=== PATIENT | female | born 1960 | race Caucasian/White ===

== ENCOUNTER → 2020-02-18 09:12 | Outpatient (CLI) | payer OTHER, SELFPAY ==
--- NOTE | 2020-02-18 09:21 | DI.MRI.S_ITS ---
PROCEDURE: MR THORACIC SPINE WO/W CON INDICATIONS: Hypercalcemia,Malignant neoplasm of unspecified si TECHNIQUE: Noncontrast sagittal T1 spin echo and T2 fast spin echo, sagittal STIR, axial T1 and T2 fast spin echo through the thoracic spine. After the administration of contrast, axial and sagittal T1 spin echo with fat saturation through the thoracic spine. COMPARISON: [facility], , MR LUMBAR SPINE WO/W CON, 02/18/2020, 15:57. [facility], [place], [place] BONE SCAN WHOLE BODY, 02/18/2020, 13:22. FINDINGS: Image quality: Excellent. Alignment and curvature: This examination is limited by involuntary motion artifact. Marrow: Extensive bony metastatic disease can be seen within the thoracic spine. At the L5 level, there is a pathologic fracture seen with a central compression deformity of 30%. There is no significant posterior displacement of fracture fragments. No additional jona fractures are seen. Each vertebral body is involved with tumor, with decreased T1 weighted signal and increased T2-weighted/STIR signal, with increased enhancement. Involvement of several ribs can be seen, most notably on the left on series 8 image 18 and on series 6 image 197. Several of the posterior elements are involved, most notably the T9 spinous process. Spinal cord: Visualized spinal cord is of normal signal and size, without abnormal enhancement. Paraspinous soft tissues: No paravertebral masses or abnormal enhancement. Miscellaneous: At the T7 level, there is posterior growth of the vertebral body and posterior elements on the right, with mild to moderate central canal narrowing. Milder areas of narrowing are seen elsewhere. IMPRESSION: Extensive bony metastatic disease, with involvement of each thoracic vertebral body level. Several ribs and posterior elements are also involved. T5 pathologic fracture, if 30% loss of height centrally. Mild to moderate central canal narrowing is seen at the T7 level. Dictated by: Juan M Ashton M.D. on 02/18/2020 at 16:34 Approved by: Juan M Ashton M.D. on 02/18/2020 at 16:40
--- NOTE | 2020-02-18 09:21 | DI.MRI.S_ITS ---
PROCEDURE: MR LUMBAR SPINE WO/W CON INDICATIONS: Hypercalcemia,Malignant neoplasm of unspecified si TECHNIQUE: Noncontrast sagittal T1 spin echo and T2 fast spin echo, sagittal STIR, post-Gadolinium axial T1 spin echo with fat saturation through the thoracic and lumbar spines, with additional T2 fast spin echo and post-contrast axial T1 spin echo with fat saturation sequences acquired through levels of suspected cord compression. COMPARISON: [facility], , MR THORACIC SPINE WO/W CON, 02/18/2020, 16:20. [facility], [place], [place] BONE SCAN WHOLE BODY, 02/18/2020, 13:22. FINDINGS: Image quality: Excellent. Bones: Each visualized vertebral body demonstrates involvement with metastatic disease, with decreased T1 weighted signal and increased T2-weighted/STIR signal, with increased enhancement. Within the lumbar spine, no jona pathologic fractures are seen. Several posterior elements are also involved. Degenerative changes are seen, with mild central canal narrowing at the L2-L3 level. Moderate bilateral neural foraminal narrowing can be seen at the L4-L5 level. There is moderate left-sided neural foraminal narrowing also seen at L5-S1. Spinal cord: Visualized spinal cord is normal in size and signal. Conus medullaris is normal in location, terminating at L1. No enhancing epidural mass lesions. Paraspinous soft tissues: No paravertebral masses. IMPRESSION: Extensive metastatic disease involving each vertebral body level and several posterior elements. No jona lumbar spine pathologic fractures can be seen. Dictated by: Juan M Ashton M.D. on 02/18/2020 at 16:40 Approved by: Juan M Ashton M.D. on 02/18/2020 at 16:42
--- NOTE | 2020-02-18 09:22 | DI.NM.S_ITS ---
PROCEDURE: NM BONE SCAN WHOLE BODY RADIOPHARMACEUTICAL: 19.5 mCi Tc-99m MDP IV. INDICATIONS: Hypercalcemia,Malignant neoplasm of unspecified si TECHNIQUE: Delayed whole-body scintigrams were obtained approximately 3-4 hours after intravenous injection of radiotracer. Anterior and posterior views were acquired from vertex to feet. COMPARISON: None. FINDINGS: Physiologic uptake is noted in the kidneys and bladder. There are innumerable areas of increased uptake within the ribs bilaterally. In addition, increased uptake is noted within the pelvic bones, skull and spine. There also appears to be focal areas of increased uptake within the kidneys. Increased uptake is also noted at the MCP joints bilaterally. IMPRESSION: 1. Multifocal areas of increased uptake as above highly suggestive of metastatic disease. 2. Focal areas of increased uptake within the kidneys are noted. Followup with CT/ultrasound is recommended for evaluation of potential focal renal masses. Dictated by: Taylor Horner M.D. on 02/18/2020 at 16:12 Approved by: Taylor Horner M.D. on 02/18/2020 at 16:15
== END ==
PROVIDERS: PCP Family Medicine; Referring Provider Family Medicine; Visit Provider Family Medicine
DX: C50.919 Malignant neoplasm of unspecified site of unspecified female breast (principal); C79.51 Secondary malignant neoplasm of bone; M84.48XA Pathological fracture, other site, initial encounter for fracture; E83.52 Hypercalcemia; M54.5 Low back pain; M54.6 Pain in thoracic spine
CPT/HCPCS: 72157; 72158; 78306; A9503; A9579